=== PATIENT | male | born 1945 | race Caucasian/White ===

== ENCOUNTER 2018-10-17 05:48 | Day surgery (SDC) | payer OTHER ==
[2018-10-12 09:22] VITALS: BP 130/80
[2018-10-12 09:35] LABS: CREATININE 1.5 mg/dL (0.5-1.5); POTASSIUM 3.7 mmol/L (3.5-5.1)
[2018-10-12 09:37] LABS: BASOPHILS % (AUTO) 0.5 % (0.0-5.0); EOSINOPHILS % (AUTO) 1.3 % (0.0-8.0); HEMATOCRIT 42.7 % (42-54); LYMPHOCYTES % (AUTO) 16.9 % (21.0-51.0); MEAN CORPUSCULAR HEMOGLOBIN 32.9 pg (27.0-33.0); MEAN CORPUSCULAR HGB CONC 34.5 g/dL (32.0-36.0); MEAN CORPUSCULAR VOLUME 95.4 fL (79-99); MONOCYTES % (AUTO) 9.6 % (3.0-13.0); NEUTROPHILS % (AUTO) 71.7 % (40.0-77.0); NUCLEATED RED BLOOD CELLS 0.1 % (0.0-0.19); PLATELET COUNT (AUTO) 213 K/uL (130-400); RED BLOOD CELL COUNT(AUTO) 4.48 MIL/uL (4.50-6.20); RED CELL DISTRIBUTION WIDTH 13.2 % (11.0-15.5); WHITE BLOOD COUNT (AUTO) 7.9 K/uL (4.8-10.8)
[2018-10-12 09:45] LABS: INR 1.47 (0.85-1.15); PARTIAL THROMBOPLASTIN TIME 42.9 SEC (26.3-35.5); PROTHROMBIN TIME 15.3 SEC (9.6-11.6)
[2018-10-12 09:49] LABS: APPEARANCE,URINE Turbid (CLEAR); BILIRUBIN,URINE Negative (NEGATIVE); COLOR,URINE Yellow (YELLOW); GLUCOSE, URINE (UA) Negative (NEGATIVE); KETONES,URINE Negative (NEGATIVE); LEUKOCYTE ESTERASE ,URINE Trace (NEGATIVE); NITRATE,URINE Negative (NEGATIVE); OCCULT BLOOD,URINE Small (NEGATIVE); PROTEIN,URINE Negative (NEGATIVE)
[2018-10-12 09:57] LABS: BACTERIA,URINE Rare /HPF (None Seen); MUCUS,URINE Rare LPF (None Seen); SQUAMOUS EPITHELIAL CELL,UR Rare /HPF (0-2); WBC,URINE 0-1 /HPF (0-1)
[2018-10-17] VITALS (11 sets, daily range): BP systolic 127–161; BP diastolic 78–96
[~2018-10-17] VITALS: Ht 185.4 cm; Wt 122.5 kg
[~2018-10-17 05:48] MED LIST: AEC81 PO; ATOR10 PO; HYDR-2534 PO; LOSA100T20 PO; METO-408 PO; NITR0.4T50 SL; RANO500T3 PO; RIVA20TA PO; SODIUM CHLORIDE 0.9% 500ML 500 ML IV SCH
[2018-10-17] MEDS ORDERED: SODIUM CHLORIDE 0.9% 1000ML 1,000 ML IV ONE (06:36)
[2018-10-17] MEDS ORDERED: HEPARIN SODIUM 1000UNIT/ML 10ML VIAL ONE ×2 (07:09)
[2018-10-17] MEDS ORDERED: NITROGLYCERIN 5 MG/ML 10 ML VIAL IV ONE (07:09)
[2018-10-17] MEDS ORDERED: LIDOCAINE HCL 2% 20ML ONE (07:09)
[2018-10-17] MEDS ORDERED: IOHEXOL 350 MG/ML 100ML INFUS..BTL IV ONE (07:10)
[2018-10-17] MEDS ORDERED: IOHEXOL-350 50ML VIAL IV ONE (07:10)
[2018-10-17] MEDS ORDERED: MIDAZOLAM HCL 1 MG/ML 2ML VIAL ONE (07:40)
[2018-10-17] MEDS ORDERED: HYDRALAZINE HCL 20 MG/ML VIAL ONE (07:56)
[2018-10-17] MEDS ORDERED: NON-FORMULARY MEDICATION 1 EACH PO SCH (10:15)
[2018-10-17] MEDS ORDERED: METOPROLOL TARTRATE 25 MG TAB PO SCH (10:15)
== END 2018-10-17 13:22 | disposition home or self-care (01) ==
LOC: DAH 05:48
PROVIDERS: ATTEND Internal Medicine Cardiovascular Disease
DX: I25.118 Atherosclerotic heart disease of native coronary artery with other forms of angina pectoris (principal); I34.0 Nonrheumatic mitral (valve) insufficiency; Z79.899 Other long term (current) drug therapy; Z79.01 Long term (current) use of anticoagulants; I48.1 Persistent atrial fibrillation; I10 Essential (primary) hypertension; E78.5 Hyperlipidemia, unspecified; Z68.34 Body mass index [BMI] 34.0-34.9, adult
CPT/HCPCS: 36415; 71045; 80048; 81001; 85025; 85610; 85730; 93005; 93458; A4606; C1894; J0360; J1644 ×2; J2250; J3490 ×2; J7030; Q9965; Q9967 ×2; 99156; 99157

== ENCOUNTER → 2019-02-13 | Outpatient (CLI) | payer OTHER ==
[~2019-02-13] MED LIST changes: -LOSA100T20 PO; +LOSA100T58 PO; -SODIUM CHLORIDE 0.9% 500ML 500 ML IV SCH
[2019-02-13 12:17] LABS: BASOPHILS % (AUTO) 0.5 % (0.0-5.0); EOSINOPHILS % (AUTO) 0.9 % (0.0-8.0); HEMATOCRIT 41.2 % (42-54); MEAN CORPUSCULAR HEMOGLOBIN 32.4 pg (27.0-33.0); MEAN CORPUSCULAR HGB CONC 33.9 g/dL (32.0-36.0); MEAN CORPUSCULAR VOLUME 95.6 fL (79-99); MONOCYTES % (AUTO) 9.4 % (3.0-13.0); NEUTROPHILS % (AUTO) 71.2 % (40.0-77.0); PLATELET COUNT (AUTO) 200 K/uL (130-400); RED BLOOD CELL COUNT(AUTO) 4.31 MIL/uL (4.50-6.20); RED CELL DISTRIBUTION WIDTH 13.1 % (11.0-15.5); WHITE BLOOD COUNT (AUTO) 7.6 K/uL (4.8-10.8)
[2019-02-13 12:28] LABS: CREATININE 1.3 mg/dL (0.5-1.5)
== END | disposition home or self-care (01) ==
LOC: LAB 11:38
PROVIDERS: ATTEND Urology
DX: R31.29 Other microscopic hematuria (principal)
CPT/HCPCS: 36415; 80048; 85025

== ENCOUNTER → 2019-03-03 | Outpatient (CLI) | payer OTHER ==
[~2019-03-03] MED LIST changes: +IOHEXOL-350 75 ML VIAL IV ONE
== END | disposition home or self-care (01) ==
LOC: RAH 08:54
PROVIDERS: ATTEND Urology
DX: N20.0 Calculus of kidney (principal); K57.90 Diverticulosis of intestine, part unspecified, without perforation or abscess without bleeding; I70.90 Unspecified atherosclerosis; M47.815 Spondylosis without myelopathy or radiculopathy, thoracolumbar region
CPT/HCPCS: 74178; Q9967

== ENCOUNTER → 2019-03-13 | Outpatient (CLI) | payer OTHER ==
[~2019-03-13] MED LIST changes: -IOHEXOL-350 75 ML VIAL IV ONE
== END | disposition home or self-care (01) ==
LOC: RAH 09:17
PROVIDERS: ATTEND Urology
DX: N20.0 Calculus of kidney (principal); M47.816 Spondylosis without myelopathy or radiculopathy, lumbar region
CPT/HCPCS: 74018; 76100

== ENCOUNTER 2021-10-23 11:17 | Observation (INO) | payer OTHER ==
[~2021-10-23] VITALS: Ht 185.4 cm; Wt 120.8 kg
[~2021-10-23 11:17] MED LIST changes: -HYDR-2534 PO; +HYDR50TA PO
[2021-10-23] MEDS ORDERED: ACETAMINOPHEN 325 MG TAB PO PRN (17:00)
[2021-10-23] MEDS ORDERED: ACETAMINOPHEN 650 MG SUPPOSITORY RC PRN (17:00)
[2021-10-23] MEDS ORDERED: CEFTRIAXONE 1G VIAL IVP SCH (17:00)
[2021-10-23] MEDS ORDERED: MORPHINE 2 MG SYG IVP PRN (17:00)
[2021-10-23] MEDS ORDERED: ONDANSETRON 4MG INJ IVP PRN (17:00)
[2021-10-23] MEDS ORDERED: CLONIDINE HCL 0.1 MG TABLET PO PRN (17:00)
[2021-10-23] MEDS ORDERED: TRAMADOL HCL 50 MG TABLET PO PRN (17:00)
[2021-10-23] MEDS ORDERED: TRAM50TA4 PO (17:13)
[2021-10-23] MEDS ORDERED: FINA5TAB41 PO (17:13)
[2021-10-23] MEDS ORDERED: CHOL500051 PO (17:13)
[2021-10-23] MEDS ORDERED: MULT1CAP PO (17:13)
[2021-10-23] MEDS ORDERED: PHARMACY COMMUNICATION MISC SCH (17:30)
[2021-10-23] MEDS ORDERED: PHYTONADIONE 10 MG in 0.9%NACL 50ML 50 ML IVPB ONE (18:00)
[2021-10-23] MEDS ORDERED: METOPROLOL TARTRATE 25 MG TAB ONE (18:14)
[2021-10-23 18:50] LABS: BASOPHILS % (AUTO) 0.3 % (0.0-5.0); EOSINOPHILS % (AUTO) 0.9 % (0.0-8.0); HEMATOCRIT 39.5 % (42-54); LYMPHOCYTES % (AUTO) 15.2 % (21.0-51.0); MEAN CORPUSCULAR HEMOGLOBIN 33.3 pg (27.0-33.0); MEAN CORPUSCULAR HGB CONC 33.9 g/dL (32.0-36.0); MEAN CORPUSCULAR VOLUME 98.3 fL (79-99); MONOCYTES % (AUTO) 8.9 % (3.0-13.0); NEUTROPHILS % (AUTO) 74.4 % (40.0-77.0); PLATELET COUNT (AUTO) 228 K/uL (130-400); RED BLOOD CELL COUNT(AUTO) 4.02 MIL/uL (4.50-6.20); RED CELL DISTRIBUTION WIDTH 12.2 % (11.0-15.5); WHITE BLOOD COUNT (AUTO) 9.7 K/uL (4.8-10.8)
[2021-10-23 19:02] LABS: CREATININE 1.2 mg/dL (0.5-1.5); POTASSIUM 3.2 mmol/L (3.5-5.1)
[2021-10-23 19:07] LABS: ALBUMIN 3.5 g/dL (3.5-5.0); BILIRUBIN,TOTAL 0.7 mg/dL (0.2-1.0); TOTAL PROTEIN, SERUM 7.2 g/dL (6.0-8.3)
[2021-10-23 19:11] LABS: APPEARANCE,URINE Clear (CLEAR); BILIRUBIN,URINE Negative (NEGATIVE); COLOR,URINE Yellow (YELLOW); GLUCOSE, URINE (UA) Negative (NEGATIVE); KETONES,URINE Negative (NEGATIVE); LEUKOCYTE ESTERASE ,URINE Negative (NEGATIVE); NITRATE,URINE Negative (NEGATIVE); OCCULT BLOOD,URINE Negative (NEGATIVE); PH,URINE 6.5 (5.0-8.0); PROTEIN,URINE Negative (NEGATIVE); UROBILINOGEN,URINE 0.2 mg/dL (0.2-1.0)
[2021-10-23 19:24] LABS: INR 1.5 (0.85-1.15); PROTHROMBIN TIME 15.8 SEC (9.6-11.6)
[2021-10-23 19:25] LABS: PARTIAL THROMBOPLASTIN TIME 38.2 SEC (26.3-35.5)
[2021-10-23 20:20] VITALS: BP 149/83
[2021-10-23] MEDS ORDERED: ENOXAPARIN SODIUM 1 MG/KG SQ SCH ×2 (21:00)
[2021-10-23] MEDS ORDERED: METOPROLOL TARTRATE 25 MG TAB PO SCH (21:00)
[2021-10-23] MEDS: ENOXAPARIN SODIUM 120 MG/0.8ML SQ SCH (21:47)
[2021-10-23 23:28] VITALS: BP 127/76
[2021-10-24 04:00] VITALS: BP 165/92
[2021-10-24 05:34] LABS: BASOPHILS % (AUTO) 0.6 % (0.0-5.0); EOSINOPHILS % (AUTO) 1.1 % (0.0-8.0); HEMATOCRIT 37.4 % (42-54); LYMPHOCYTES % (AUTO) 24.4 % (21.0-51.0); MEAN CORPUSCULAR HEMOGLOBIN 32.2 pg (27.0-33.0); MEAN CORPUSCULAR HGB CONC 32.4 g/dL (32.0-36.0); MEAN CORPUSCULAR VOLUME 99.5 fL (79-99); MONOCYTES % (AUTO) 12.7 % (3.0-13.0); NEUTROPHILS % (AUTO) 60.8 % (40.0-77.0); PLATELET COUNT (AUTO) 215 K/uL (130-400); RED BLOOD CELL COUNT(AUTO) 3.76 MIL/uL (4.50-6.20); RED CELL DISTRIBUTION WIDTH 12.1 % (11.0-15.5)
[2021-10-24 05:35] LABS: HEMOGLOBIN A1C 5.1 % (4.0-6.0)
[2021-10-24 05:50] LABS: INR 1.33 (0.85-1.15); PROTHROMBIN TIME 14.1 SEC (9.6-11.6)
[2021-10-24 05:51] LABS: PARTIAL THROMBOPLASTIN TIME 41.5 SEC (26.3-35.5)
[2021-10-24 06:08] LABS: CREATININE 1.3 mg/dL (0.5-1.5); POTASSIUM 4.1 mmol/L (3.5-5.1)
[2021-10-24] MEDS ORDERED: 0.9%NACL 1000ML 1,000 ML IV SCH (07:30)
[2021-10-24 08:00] VITALS: BP 150/68
[2021-10-24] MEDS ORDERED: NITROGLYCERIN 0.4 MG SL TAB SL PRN (08:00)
[2021-10-24] MEDS ORDERED: ASPIRIN 81MG CHEW TAB PO SCH (09:00)
[2021-10-24] MEDS ORDERED: PANTOPRAZOLE 40 MG TAB DR PO SCH (09:00)
[2021-10-24] MEDS ORDERED: LOSARTAN 50 MG TABLET PO SCH (09:00)
[2021-10-24] MEDS: ENOXAPARIN SODIUM 120 MG/0.8ML SQ SCH (09:00)
[2021-10-24] MEDS ORDERED: LIDOCAINE HCL 4% LTA SOL 4 ML VIAL TP ONE (11:29)
[2021-10-24 12:00] VITALS: BP 155/89
[2021-10-24] MEDS ORDERED: METOPROLOL TARTRATE 25 MG TAB ONE (13:48)
[2021-10-24] MEDS ORDERED: RANOLAZINE 500 MG TAB.SR.12H ONE (13:49)
[2021-10-24] MEDS ORDERED: METOPROLOL TARTRATE 1 MG/ML 5ML VIAL IV PRN (14:30)
[2021-10-24] MEDS ORDERED: IOHEXOL 350 MG/ML 100ML INFUS..BTL IV ONE (16:03)
[2021-10-24] MEDS ORDERED: ATORVASTATIN 10 MG TABLET PO SCH (21:00)
[2021-10-24] MEDS ORDERED: FINASTERIDE 5 MG TABLET PO SCH (21:00)
[2021-10-24] MEDS ORDERED: MULTIVIT MIN PO SCH (21:00)
[2021-10-24] MEDS ORDERED: ASPIRIN 81 MG EC TAB PO SCH (21:00)
[2021-10-24] MEDS ORDERED: ***HM***(Cholecalciferol (Vitamin D3) (Vitamin D3) 125 MCG) PO SCH (21:00)
[2021-10-24] MEDS ORDERED: FOLIC ACID PO SCH (21:00)
[2021-10-24] MEDS ORDERED: VIT K1 PO SCH (21:00)
[2021-10-24] MEDS ORDERED: RANOLAZINE 500 MG TAB.SR.12H PO SCH (21:00)
[2021-10-25] MEDS ORDERED: METOPROLOL SUCCINATE 50 MG TAB.SR.24H PO SCH (09:00)
== END 2021-10-24 18:00 | disposition left against medical advice (07) ==
LOC: EDH 11:17 → EDHIP 11:18 → UNDOADMIN 11:18 → INTOOBSV 11:18 → 4AH 20:22
PROVIDERS: ADMIT Internal Medicine; ATTEND Internal Medicine
DX: S80.02XA Contusion of left knee, initial encounter (principal); Z20.822 Contact with and (suspected) exposure to COVID-19; I48.0 Paroxysmal atrial fibrillation; I48.20 Chronic atrial fibrillation, unspecified; M19.90 Unspecified osteoarthritis, unspecified site; E66.9 Obesity, unspecified; I10 Essential (primary) hypertension; I25.10 Atherosclerotic heart disease of native coronary artery without angina pectoris; E78.5 Hyperlipidemia, unspecified; D68.9 Coagulation defect, unspecified; N40.0 Benign prostatic hyperplasia without lower urinary tract symptoms; F41.9 Anxiety disorder, unspecified; Z79.82 Long term (current) use of aspirin; Z79.899 Other long term (current) drug therapy; Z98.41 Cataract extraction status, right eye; Z98.42 Cataract extraction status, left eye; Z79.01 Long term (current) use of anticoagulants; Z72.89 Other problems related to lifestyle; W01.0XXA Fall on same level from slipping, tripping and stumbling without subsequent striking against object, initial encounter; Y93.89 Activity, other specified; Y92.89 Other specified places as the place of occurrence of the external cause
CPT/HCPCS: 11042; 11045; 36415 ×3; 73560; 73702; 80048 ×2; 80053; 81003; 82550 ×3; 83036; 83874 ×3; 84484 ×3; 85025 ×3; 85610 ×3; 85730 ×2; 87070; 87077 ×2; 87186 ×2; 87635; 93005; 96365; 96372; 96375; A4450; G0378 ×25; J0696; J1650; J3430; Q9967; 80185